=== PATIENT | female | born 1990 | race Caucasian/White ===

== ENCOUNTER 2017-02-13 23:15 | Emergency (ER) | payer OTHER ==
[~2017-02-13] VITALS: Ht 165.1 cm; Wt 63.5 kg
[~2017-02-13 23:15] MED LIST: IMITREX100 MG PO; NORTRIPTYLINE H10 MG PO; VENLAFAXINE HCL75 M3 PO
[2017-02-13 23:18] VITALS: BP 124/100
[2017-02-13] MEDS ORDERED: LAMICTAL100 MG PO (23:44)
[2017-02-14] MEDS ORDERED: NAPROSYN500 MG PO (01:30)
[2017-02-14] MEDS ORDERED: PERCOCET 5/31 TABLET PO (01:30)
== END 2017-02-14 01:45 | disposition home or self-care (01) ==
LOC: EME 23:15
DX: S32.10XA Unspecified fracture of sacrum, initial encounter for closed fracture (principal); V00.121A Fall from non-in-line roller-skates, initial encounter
CPT/HCPCS: 72100; 72220; 99281; 99283

== ENCOUNTER 2018-06-04 03:01 | Emergency (ER) | payer OTHER ==
[~2018-06-04] VITALS: Ht 165.1 cm; Wt 64.7 kg
[~2018-06-04 03:01] MED LIST changes: +LAMICTAL100 MG PO; +NAPROSYN500 MG PO; +PERCOCET 5/31 TABLET PO
[2018-06-04] MEDS ORDERED: NORCO 5/3251 TABLET PO (04:35)
[2018-06-04] MEDS ORDERED: MOTRIN800 MG PO (04:35)
[2018-06-04] MEDS ORDERED: VALIUM5 MG PO (04:35)
[2018-06-04 04:51] VITALS: BP 117/75
== END 2018-06-04 04:54 | disposition home or self-care (01) ==
LOC: EME 03:01
DX: G57.01 Lesion of sciatic nerve, right lower limb (principal); S16.1XXA Strain of muscle, fascia and tendon at neck level, initial encounter; S46.811A Strain of other muscles, fascia and tendons at shoulder and upper arm level, right arm, initial encounter; X50.0XXA Overexertion from strenuous movement or load, initial encounter; Y93.89 Activity, other specified
CPT/HCPCS: 99281; 99283